=== PATIENT | female | born 1990 | race African-American/Black ===

== ENCOUNTER 2023-08-27 10:10 | Inpatient (IN) | payer OTHER ==
--- NOTE | 2023-08-27 11:11 | ED ---
Abdominal Pain HPI - General Chief Complaint: Abdominal Pain Stated Complaint: abd pain Time Seen by Provider: 08/27/23 11:09 Source: patient, RN notes reviewed Mode of arrival: ambulatory Limitations: no limitations - History of Present Illness Initial Comments: 33-year-old female presenting to the ER with chief complaint of abdominal pain. Patient currently is residing at [facility] for alcohol rehab. She states her last drink was on 08-21-2023. Patient reports she would drink 2 to 3 pints per day. Does have a history of seizures and tremors. Last seizure about 1 year ago. Patient reports about 1 month ago she was diagnosed with pancreatitis and hospitalized at [facility] in [place]. She was discharged on 08/04/23. She states that symptoms have been intermittent and within the past 24 to 48 hours she started to experience extreme abdominal pain especially right upper quadrant and left upper quadrant. She also reports diarrhea and nausea. Denies vomiting or fevers. She has been using a lidocaine patch without relief. Denies any urinary complaints, chest pain, shortness of breath, cough, congestion or peripheral edema. - Related Data Home Medications Medication Instructions Recorded Confirmed Albuterol Sulfate [Albuterol 1 - 2 puff PO Q4-6H PRN 08/27/23 08/27/23 Sulfate Hfa] Celecoxib [CeleBREX] 100 mg PO DAILY 08/27/23 08/27/23 Escitalopram [Lexapro] 10 mg PO DAILY 08/27/23 08/27/23 Folic Acid 1 mg PO DAILY 08/27/23 08/27/23 Mirtazapine 7.5 mg PO HS 08/27/23 08/27/23 Pantoprazole [Protonix] 40 mg PO DAILY 08/27/23 08/27/23 Allergies Allergy/AdvReac Type Severity Reaction Status Date / Time No Known Allergies Allergy Verified 08/27/23 11:18 Review of Systems ROS Statement: Those systems with pertinent positive or pertinent negative responses have been documented in the HPI. ROS Other: All systems not noted in ROS Statement are negative. Past Medical History Additional Past Medical History / Comment(s): pancreatitis, Hep C History of Any Multi-Drug Resistant Organisms: None Reported Past Surgical History: No Surgical Hx Reported, Appendectomy Past Psychological History: Anxiety, Bipolar, Depression, PTSD Smoking Status: Current every day smoker Past Alcohol Use History: None Reported Past Drug Use History: Marijuana General Exam Limitations: no limitations General appearance: alert, in no apparent distress Respiratory exam: Present: normal lung sounds bilaterally. Absent: respiratory distress, wheezes, rales, rhonchi, stridor Cardiovascular Exam: Present: regular rate, normal rhythm, normal heart sounds. Absent: systolic murmur, diastolic murmur, rubs, gallop, clicks GI/Abdominal exam: Present: soft, tenderness (Upper quadrants), normal bowel sounds Neurological exam: Present: alert, oriented X3, CN II-XII intact Skin exam: Present: warm, dry, intact, normal color. Absent: rash Course Vital Signs 08/27/23 08/27/23 10:32 15:13 Temperature 97.7 F Pulse Rate 65 52 L Respiratory 16 16 Rate Blood Pressure 119/82 111/73 O2 Sat by Pulse 99 99 Oximetry - Reevaluation(s) Reevaluation #1: 08/27/23 15:01 Case discussed with irineo Lee, who accepts medical admission. Medical Decision Making - Medical Decision Making Was pt. sent in by a medical professional or institution (, PA, [employer], urgent care, hospital, or assisted...) When possible be specific @ -Patient sent by [facility] for abdominal pain. Did you speak to anyone other than the patient for history (EMS, parent, family, police, friend...)? What history was obtained from this source @ -No Did you review nursing and triage notes (agree or disagree)? Why? @ -I reviewed and agree with nursing and triage notes Were old charts reviewed (outside hosp., previous admission, EMS record, old EKG, old radiological studies, urgent care reports/EKG's, assisted records)? Report findings @ -No old charts were reviewed Differential Diagnosis (chest pain, altered mental status, abdominal pain women, abdominal pain men, vaginal bleeding, weakness, fever, dyspnea, syncope, headache, dizziness, GI bleed, back pain, seizure, CVA, palpatations, mental health, musculoskeletal)? @ -Differential Abdominal Pain Women:Appendicitis, Cholecystitis, diverticulosis, ischemic bowel, pancreatitis, hepatitis, UTI, gastroenteritis, AAA, incarcerated hernia, bowel obstruction, constipation, inflammatory bowel, hepatitis, peptic ulcer disease, splenic infarction, perforated viscus, vulvitis, ovarian torsion, PID, kidney stone, placenta abruption, this is not meant to be an all-inclusive list EKG interpreted by me (3pts min.). @ -None X-rays interpreted by me (1pt min.). @ -None done CT interpreted by me (1pt min.). @ -CT abdomen pelvis significant for retroperitoneal fibrosis or soft tissue mass. U/S interpreted by me (1pt. min.). @ -None done What testing was considered but not performed or refused? (CT, X-rays, U/S, la bs)? Why? @ -None What meds were considered but not given or refused? Why? @ -None Did you discuss the management of the patient with other professionals (professionals i.e. , PA, [employer], lab, RT, psych nurse, social security benefits interviewer, summer internship, teacher, escrow officer, case advocate)? Give summary @ -Yes, case discussed with Dr. Payne accepts medical admission. Was smoking cessation discussed for >3mins.? @ -No Was critical care preformed (if so, how long)? @ -No Were there social determinants of health that impacted care today? How? (Homelessness, low income, unemployed, alcoholism, drug addiction, transportation, low edu. Level, literacy, decrease access to med. care, half-way, rehab)? @ -Patient currently residing at [facility] for alcohol abuse. Was there de-escalation of care discussed even if they declined (Discuss DNR or withdrawal of care, Hospice)? DNR status @ -No What co-morbidities impacted this encounter? (DM, HTN, Smoking, COPD, CAD, Cancer, CVA, ARF, Chemo, Hep., AIDS, mental health diagnosis, sleep apnea, morbid obesity)? @ -Alcohol abuse Was patient admitted / discharged? Hospital course, mention meds given and route, prescriptions, significant lab abnormalities, going to OR and other pertinent info. @ -Admitted. 33-year-old female presenting to the ER with chief complaint of abdominal pain. History and physical exam completed. Vitals stable. Patient in no signs acute distress and nontoxic-appearing. RUQ/LUQ abdomainl tenderness with normal bowel sounds on exam. Laboratory studies obtained significant for a white blood cell count 12.1 with left shift. Elevated lipase at 1708 and amylase 754. Urine without signs of infection. CT abdomen pelvis significant for an incidental finding of retroperitoneal fibrosis or soft tissue mass. Symptomatic treatment in ER. Admission considered for pancreatitis and IV fluids. Case discussed with Irineo Lee, who accepts medical admission. Patient agreeable for admission. Case discussed with ED attending, Dr. Pierre. Undiagnosed new problem with uncertain prognosis? @ -No Drug Therapy requiring intensive monitoring for toxicity (Heparin, Nitro, Insulin, Cardizem)? @ -No Were any procedures done? @ -No Diagnosis/symptom? @ -Pancreatitis Acute, or Chronic, or Acute on Chronic? @ -Acute Uncomplicated (without systemic symptoms) or Complicated (systemic symptoms)? @ -Complicated Side effects of treatment? @ -No Exacerbation, Progression, or Severe Exacerbation? @ -No Poses a threat to life or bodily function? How? (Chest pain, [place], [place], pneumonia, PE, COPD, DKA, ARF, appy, cholecystitis, CVA, Diverticulitis, Homicidal, Suicidal, threat to staff... and all critical care pts) @ -Possibly - Lab Data Result diagrams: 08/27/23 11:11 08/27/23 11:11 Lab Results 08/27/23 08/27/23 08/27/23 Range/Units 11:11 11:11 11:11 WBC 12.1 H (3.8-10.6) k/uL RBC 3.93 (3.80-5.40) m/uL Hgb 11.6 (11.4-16.0) gm/dL Hct 37.3 (34.0-46.0) % MCV 94.9 (80.0-100.0) fL MCH 29.5 (25.0-35.0) pg MCHC 31.1 (31.0-37.0) g/dL RDW 13.6 (11.5-15.5) % Plt Count 410 (150-450) k/uL MPV 7.6 Neutrophils % 67 % Lymphocytes % 13 % Monocytes % 7 % Eosinophils % 11 % Basophils % 1 % Neutrophils # 8.0 H (1.3-7.7) k/uL Lymphocytes # 1.5 (1.0-4.8) k/uL Monocytes # 0.8 (0-1.0) k/uL Eosinophils # 1.4 H (0-0.7) k/uL Basophils # 0.1 (0-0.2) k/uL Hypochromasia Slight Sodium 137 (137-145) mmol/L Potassium 4.2 (3.5-5.1) mmol/L Chloride 107 (98-107) mmol/L Carbon Dioxide 26 (22-30) mmol/L Anion Gap 4 mmol/L BUN 7 (7-17) mg/dL Creatinine 0.48 L (0.52-1.04) mg/dL Est GFR (CKD-EPI)AfAm >90 (>60 ml/min/1.73 sqM) Est GFR (CKD-EPI)NonAf >90 (>60 ml/min/1.73 sqM) Glucose 86 (74-99) mg/dL Plasma Lactic Acid Ajay 1.3 (0.7-2.0) mmol/L Calcium 8.9 (8.4-10.2) mg/dL Total Bilirubin 0.8 (0.2-1.3) mg/dL AST 25 (14-36) U/L ALT 16 (4-34) U/L Alkaline Phosphatase 82 (38-126) U/L Total Protein 6.6 (6.3-8.2) g/dL Albumin 3.4 L (3.5-5.0) g/dL Amylase 754 H* (30-110) U/L Lipase 1708 H (23-300) U/L Urine Color Urine Appearance (Clear) Urine pH (5.0-8.0) Ur Specific [place] (1.001-1.035) Urine Protein (Negative) Urine Glucose (UA) (Negative) Urine Ketones (Negative) Urine Blood (Negative) Urine Nitrite (Negative) Urine Bilirubin (Negative) Urine Urobilinogen (<2.0) mg/dL Ur Leukocyte Esterase (Negative) Urine RBC (0-5) /hpf Urine WBC (0-5) /hpf Ur Squamous Epith Cells (0-4) /hpf Urine Mucus (None) /hpf Urine HCG, Qual (Not Detectd) 08/27/23 08/27/23 Range/Units 12:48 12:48 WBC (3.8-10.6) k/uL RBC (3.80-5.40) m/uL Hgb (11.4-16.0) gm/dL Hct (34.0-46.0) % MCV (80.0-100.0) fL MCH (25.0-35.0) pg MCHC (31.0-37.0) g/dL RDW (11.5-15.5) % Plt Count (150-450) k/uL MPV Neutrophils % % Lymphocytes % % Monocytes % % Eosinophils % % Basophils % % Neutrophils # (1.3-7.7) k/uL Lymphocytes # (1.0-4.8) k/uL Monocytes # (0-1.0) k/uL Eosinophils # (0-0.7) k/uL Basophils # (0-0.2) k/uL Hypochromasia Sodium (137-145) mmol/L Potassium (3.5-5.1) mmol/L Chloride (98-107) mmol/L Carbon Dioxide (22-30) mmol/L Anion Gap mmol/L BUN (7-17) mg/dL Creatinine (0.52-1.04) mg/dL Est GFR (CKD-EPI)AfAm (>60 ml/min/1.73 sqM) Est GFR (CKD-EPI)NonAf (>60 ml/min/1.73 sqM) Glucose (74-99) mg/dL Plasma Lactic Acid Ajay (0.7-2.0) mmol/L Calcium (8.4-10.2) mg/dL Total Bilirubin (0.2-1.3) mg/dL AST (14-36) U/L ALT (4-34) U/L Alkaline Phosphatase (38-126) U/L Total Protein (6.3-8.2) g/dL Albumin (3.5-5.0) g/dL Amylase (30-110) U/L Lipase (23-300) U/L Urine Color Yellow Urine Appearance Cloudy H (Clear) Urine pH 6.0 (5.0-8.0) Ur Specific [place] 1.019 (1.001-1.035) Urine Protein Trace H (Negative) Urine Glucose (UA) Negative (Negative) Urine Ketones Negative (Negative) Urine Blood Small H (Negative) Urine Nitrite Negative (Negative) Urine Bilirubin Negative (Negative) Urine Urobilinogen <2.0 (<2.0) mg/dL Ur Leukocyte Esterase Negative (Negative) Urine RBC <1 (0-5) /hpf Urine WBC 2 (0-5) /hpf Ur Squamous Epith Cells 9 H (0-4) /hpf Urine Mucus Moderate H (None) /hpf Urine HCG, Qual Not Detected (Not Detectd) - Radiology Data Radiology results: report reviewed, image reviewed Disposition Clinical Impression: Pancreatitis Disposition: ADMITTED IP TO THIS HOSP Condition: Fair Referrals: None,Stated [Primary Care Provider] - 1-2 days Time of Disposition: 15:00
[2023-08-27] MEDS: SODIUM CHLORIDE 0.9% 1,000 ML IV STA (11:16)
[2023-08-27] MEDS: ONDANSETRON 4 MG/2 ML VIAL IVP STA (11:16)
[2023-08-27] MEDS: KETOROLAC 15 MG/ML 1 ML VIAL IVP STA (11:17)
[2023-08-27 11:31] LABS: Basophils # (A) 0.1 k/uL (0-0.2); Basophils % (A) 1 %; Eosinophils # (A) 1.4 k/uL (0-0.7); Eosinophils % (A) 11 %; HCT 37.3 % (34.0-46.0); HGB 11.6 gm/dL (11.4-16.0); Hypochromasia Slight; Lymphocytes # (A) 1.5 k/uL (1.0-4.8); Lymphocytes % (A) 13 %; MCH 29.5 pg (25.0-35.0); MCHC 31.1 g/dL (31.0-37.0); MCV 94.9 fL (80.0-100.0); Mean Platelet Volume 7.6; Monocytes # (A) 0.8 k/uL (0-1.0); Monocytes % (A) 7 %; Neutrophils % (A) 67 %; Platelet Count 410 k/uL (150-450); RBC 3.93 m/uL (3.80-5.40); RDW 13.6 % (11.5-15.5); WBC 12.1 k/uL (3.8-10.6)
[2023-08-27 11:56] LABS: ALT 16 U/L (4-34); AST 25 U/L (14-36); African American GFR (CKD) >90 (>60 ml/min/1.73 sqM); Albumin 3.4 g/dL (3.5-5.0); Alkaline Phosphatase 82 U/L (38-126); Anion Gap 4 mmol/L; Blood Urea Nitrogen 7 mg/dL (7-17); Calcium 8.9 mg/dL (8.4-10.2); Carbon Dioxide 26 mmol/L (22-30); Chloride 107 mmol/L (98-107); Glucose 86 mg/dL (74-99); Lipase 1708 U/L (23-300); Non-African American GFR(CKD) >90 (>60 ml/min/1.73 sqM); Potassium 4.2 mmol/L (3.5-5.1); Sodium 137 mmol/L (137-145); Total Bilirubin 0.8 mg/dL (0.2-1.3); Total Protein 6.6 g/dL (6.3-8.2)
[2023-08-27 12:07] LABS: Amylase 754 U/L (30-110)
[2023-08-27 13:25] LABS: Appearance,Urine Cloudy (Clear); Bilirubin,Urine Negative (Negative); Blood,Urine Small (Negative); Color,Urine Yellow; Glucose,Urine (UA) Negative (Negative); Ketones,Urine Negative (Negative); Leukocyte Esterase,Urine Negative (Negative); Mucus,Urine Moderate /hpf; Nitrite,Urine Negative (Negative); Protein,Urine Trace (Negative); RBC,Urine <1 /hpf (0-5); Specific Gravity,Urine 1.019 (1.001-1.035); Squamous Epithelial Cell,Urine 9 /hpf (0-4); Urobilinogen,Urine <2.0 mg/dL (<2.0); WBC,Urine 2 /hpf (0-5)
--- NOTE | 2023-08-27 14:40 | CT ---
EXAMINATION TYPE: CT abdomen pelvis w con CT DLP: 430.3 mGycm, Automated exposure control for dose reduction was used. DATE OF EXAM: 08/27/2023 1:55 PM COMPARISON: None. CLINICAL INDICATION:Female, 33 years old with history of abd pain; Abdominal pain TECHNIQUE: Axial CT abdomen pelvis w con;Sagittal and coronal reformats were created on a separate w orkstation. Contrast used:100 ml mL of Isovue 300 with IV Contrast, (none if empty) Oral contrast used: without Oral Contrast (none if empty) FINDINGS: LOWER CHEST: Unremarkable ABDOMEN LIVER: Unremarkable GALLBLADDER AND BILE DUCTS: Unremarkable. PANCREAS: Unremarkable. SPLEEN: Unremarkable. ADRENAL GLANDS: Unremarkable. KIDNEYS AND URETERS: No evidence of hydronephrosis or renal calculus. The ureters are unremarkable. PELVIS BLADDER: Unremarkable REPRODUCTIVE: Unremarkable. ABDOMEN & PELVIS STOMACH AND BOWEL: Stomach and duodenum are unremarkable PICC line No evidence of bowel obstruction. PERITONEUM/RETROPERITONEUM: In the hi hepatis and chest below the takeoff of the SMA there is soft tissue density mass partially encasing the inferior vena cava and the right renal artery pain left r enal vein is involved. Mass extends to the bifurcation of the aorta. Although this structure a perito lynette mass does not appear to extend to the uterus, the uterus has a similar density and appearance of the mass. VASCULATURE: No evidence of aortic aneurysm. MUSCULOSKELETAL: No acute osseous abnormalities LYMPH NODES: No gross evidence for lymphadenopathy. SOFT TISSUE/ABDOMINAL WALL: Unremarkable IMPRESSION: 1. Retroperitoneal fibrosis or soft tissue mass not otherwise specified in the retroperitoneum. RPF is usually idiopathic. However, it can be secondary to other causes, such as malignancy, infecti on, retroperitoneal injury, or drugs. Lymphoma can sometimes do this.
[2023-08-27] MEDS ORDERED: NALOXONE 0.4 MG/ML 1 ML VIAL IV PRN (14:58)
[2023-08-27] MEDS: SODIUM CHLORIDE 0.9% 1,000 ML IV SCH (15:11)
[2023-08-27] MEDS: KETOROLAC 15 MG/ML 1 ML VIAL IVP PRN (15:11)
[2023-08-27] MEDS: THIAMINE 100 MG TAB PO SCH (16:06)
[2023-08-27] MEDS: LACTATED RINGERS 1,000 ML IV SCH (16:07)
--- NOTE | 2023-08-27 17:27 | P.HPIM ---
History of Present Illness H&P Date: 08/27/23 Patient is a 33-year-old female with history of alcohol abuse and previous history of pancreatitis presenting from [place] with abdominal pain. She claims that she has been drinking 2 to 3 pints of vodka per day, last drink was 6 days ago. Recently she was then different part of [place], was diagnosed with pancreatitis. She was later discharged on pain medication however, her wilmer n has now resolved and since worsened. She denies any nausea, vomiting, chest pain, palpitations, lightheadedness, urinary or bowel complaints. She did have 1 loose bowel movement today, otherwise her bowel movements have been normal. She smokes half a pack a day, and occasionally smokes marijuana. In the ED, temperature was 97.7, pulse 65, respiratory rate 16, blood pressure 119/82, saturating at 99% on room air. Abdomen pelvis CT shows retroperitoneal fibrosis or soft tissue mass not otherwise specified in the retroperitoneum, likely idiopathic, however can be secondary to other causes such as malignancy, infection, retroperitoneal injury, or drugs, lymphoma can also sometimes be seen . WBC 12.1, creatinine 0.48, amylase 754, lipase 1700. Urinalysis negative for nitrites and leukocyte esterase. Beta-hCG negative. Patient started on IV fluids. Being admitted for acute pancreatitis. Pertinent positives and negatives as discussed in HPI, a complete review of systems was performed and all other systems are negative. Patient seen and examined at bedside. Vital signs reviewed General: nontoxic, no distress, appears at stated age Derm: warm, dry Head: atraumatic, normocephalic, symmetric Eyes: EOMI, no lid lag, anicteric sclera, pupils equal round reactive to light ENT: Nose and ears atraumatic Neck: No thyromegaly, supple Mouth: no lip lesion, mucus membranes moist Cardiovascular: S1S2 reg, no murmur, no edema Lungs: clear to auscultation bilateral, no rhonchi, no rales, no wheeze, no accessory muscle use Abdominal: soft, tender to palpation in epigastric, and right flank. No guarding, no appreciable organomegaly Ext: no gross muscle atrophy, muscle strength muscle strength 5 out of 5 in all 4 extremities, no contractures Neuro: CN II-XII grossly intact Psych: Alert, oriented, appropriate affect Assessment/Plan: Active: Acute on chronic alcoholic pancreatitis Leukocytosis, likely reactive Alcohol dependence -Started on lactated Ringer 150 cc an hour -Pain control with IV morphine as needed, monitor for sedation, also on IV Toradol as needed, monitor renal function -Zofran as needed IV for nausea vomiting -Continue home pantoprazole 40 mg daily -CT abdomen pelvis reporting retroperitoneal fibrosis or 2 soft tissue mass, may need further evaluation in the future with dedicated MRI -Patient has had previous episodes of pancreatitis -Monitor for withdrawal, started on thiamine oral 100 mg daily -Last drink was 08/21/2023, should be out of withdrawal period -Repeat CBC and BMP tomorrow Nicotine dependence -Counseled regarding smoking cessation Chronic: GERD Depression The patient is admitted with an anticipated less than 2 midnight stay as observation status for evaluation of acute on chronic pancreatitis. Surrogate decision-maker: Sibling CODE STATUS: Full code DVT prophylaxis: Lovenox Anticipated discharge date: Pending clinical course Anticipated discharge place: Pending clinical course A total of 55 minutes was spent on the care of this complex patient more than 50% of the time was spent in counseling and care coordination. Past Medical History Additional Past Medical History / Comment(s): pancreatitis, Hep C History of Any Multi-Drug Resistant Organisms: None Reported Past Surgical History: No Surgical Hx Reported, Appendectomy Past Psychological History: Anxiety, Bipolar, Depression, PTSD Smoking Status: Current every day smoker Past Alcohol Use History: None Reported Past Drug Use History: Marijuana Medications and Allergies Home Medications Medication Instructions Recorded Confirmed Type Albuterol Sulfate [Albuterol 1 - 2 puff PO Q4-6H PRN 08/27/23 08/27/23 History Sulfate Hfa] Celecoxib [CeleBREX] 100 mg PO DAILY 08/27/23 08/27/23 History Escitalopram [Lexapro] 10 mg PO DAILY 08/27/23 08/27/23 History Folic Acid 1 mg PO DAILY 08/27/23 08/27/23 History Mirtazapine 7.5 mg PO HS 08/27/23 08/27/23 History Pantoprazole [Protonix] 40 mg PO DAILY 08/27/23 08/27/23 History Allergies Allergy/AdvReac Type Severity Reaction Status Date / Time No Known Allergies Allergy Verified 08/27/23 11:18 Physical Exam Vitals: Vital Signs Temp Pulse Resp BP Pulse Ox 08/27/23 15:13 52 L 16 111/73 99 08/27/23 10:32 97.7 F 65 16 119/82 99 Intake and Output 08/27/23 08/27/23 08/27/23 06:59 14:59 22:59 Other: Weight 58.06 kg Results CBC & Chem 7: 08/27/23 11:11 08/27/23 11:11 Labs: Abnormal Lab Results - Last 24 Hours (Table) 08/27/23 08/27/23 08/27/23 Range/Units 11:11 11:11 12:48 WBC 12.1 H (3.8-10.6) k/uL Neutrophils # 8.0 H (1.3-7.7) k/uL Eosinophils # 1.4 H (0-0.7) k/uL Creatinine 0.48 L (0.52-1.04) mg/dL Albumin 3.4 L (3.5-5.0) g/dL Amylase 754 H* (30-110) U/L Lipase 1708 H (23-300) U/L Urine Appearance Cloudy H (Clear) Urine Protein Trace H (Negative) Urine Blood Small H (Negative) Ur Squamous Epith Cells 9 H (0-4) /hpf Urine Mucus Moderate H (None) /hpf
[2023-08-27] MEDS: MORPHINE SULFATE 2 MG/ML SYRINGE IVP PRN (18:25)
[2023-08-27] MEDS: MIRTAZAPINE 15 MG TAB PO SCH (20:45)
[2023-08-28 03:56] LABS: ALT 14 U/L (4-34); AST 18 U/L (14-36); African American GFR (CKD) >90 (>60 ml/min/1.73 sqM); Albumin 2.6 g/dL (3.5-5.0); Alkaline Phosphatase 62 U/L (38-126); Anion Gap 5 mmol/L; Blood Urea Nitrogen 4 mg/dL (7-17); Calcium 8.2 mg/dL (8.4-10.2); Carbon Dioxide 20 mmol/L (22-30); Chloride 113 mmol/L (98-107); Glucose 128 mg/dL (74-99); Magnesium 1.9 mg/dL (1.6-2.3); Non-African American GFR(CKD) >90 (>60 ml/min/1.73 sqM); Potassium 3.8 mmol/L (3.5-5.1); Sodium 138 mmol/L (137-145); Total Bilirubin 0.5 mg/dL (0.2-1.3); Total Protein 5.4 g/dL (6.3-8.2)
[2023-08-28 04:31] LABS: HCT 33.5 % (34.0-46.0); HGB 10.4 gm/dL (11.4-16.0); Hypochromasia Moderate; MCH 29.8 pg (25.0-35.0); Mean Platelet Volume 8.4; Platelet Count 347 k/uL (150-450); RBC 3.49 m/uL (3.80-5.40); RDW 13.5 % (11.5-15.5); WBC 8.8 k/uL (3.8-10.6)
[2023-08-28 06:37] LABS: Band Neutrophils % 1 %; Lymphocytes # (M) 2.29 k/uL (1.0-4.8); Monocytes # (M) 0.26 k/uL (0-1.0); Neutrophils % (M) 53 %; Nucleated Red Blood Cells 0 /100 WBC (0-0); Total Cells Counted 100
[2023-08-28 06:43] LABS: Polychromasia Present; Target Cells Present
[2023-08-28 06:44] LABS: Poikilocytosis (M) Present
[2023-08-28] MEDS: PANTOPRAZOLE 40 MG TABLET PO SCH (08:08)
[2023-08-28] MEDS: ENOXAPARIN 40 MG/0.4 ML SYRINGE SQ SCH (08:08)
[2023-08-28] MEDS ORDERED: ACETAMINOPHEN TAB 325 MG TAB PO PRN (08:14)
[2023-08-28] MEDS: MORPHINE SULFATE 4 MG/ML SYRINGE IVP PRN (08:27)
[2023-08-28] MEDS: ESCITALOPRAM 10 MG TAB PO SCH (08:28)
[2023-08-28] MEDS: ONDANSETRON 4 MG/2 ML VIAL IVP PRN (10:04)
[2023-08-28 11:01] LABS: Glucose,Whole Blood 98 mg/dL (70-110)
[2023-08-28] MEDS: METOCLOPRAMIDE 5 MG/ML 2 ML VIAL IVP STA ×2 (11:34→21:49)
[2023-08-28] MEDS: KETOROLAC 15 MG/ML 1 ML VIAL IVP STA (11:35)
--- NOTE | 2023-08-28 13:57 | P.PN ---
Subjective Progress Note Date: 08/28/23 Hospital Course: 33-year-old female with history of alcohol dependence, previous history of mcdaniel creatitis, bipolar disorder, generalized anxiety disorder, major depressive disorder, PTSD, nicotine dependence and cannabis use disorder presenting from [place] with abdominal pain. In the ED, temperature was 97.7, pulse 65, respiratory rate 16, blood pressure 119/82, saturating at 99% on room air. Abdomen pelvis CT shows retroperitoneal fibrosis or soft tissue mass not otherwise specified in the retroperitoneum, likely idiopathic, however can be secondary to other causes such as malignancy, infection, retroperitoneal injury, or drugs, lymphoma can also sometimes be seen. WBC 12.1, creatinine 0.48, amylase 754, lipase 1700. Urinalysis negative for nitrites and leukocyte esterase. Beta-hCG negative. Patient started on IV fluids. Being admitted for acute pancreatitis. On the morning of 08/28/2023 patient had an episode of unresponsiveness. No seizure-like activity noted. Patient became quickly responsive and screaming in pain and try to induce vomiting. There was no postictal period noted. Neurology was notified. Attempted to get a CT head and stat EEG, patient refusing. Symptoms consistent with pseudoseizure. Psychiatry also consulted. Subjective: Patient seen and examined at bedside. This morning, patient had an episode of unresponsiveness. No seizure-like activity noted. Patient became quickly responsive and screaming in pain and try to induce vomiting. There was no postictal period noted. Neurology was notified. Attempted to get a CT head and stat EEG, patient refusing. Symptoms consistent with pseudoseizure. Psychiatry also consulted. Pertinent positives and negatives as discussed above, a complete review of systems was performed and all other systems are negative. Vitals Signs Reviewed. General: Nontoxic, no distress, appears at stated age Derm: Warm, dry Head: Atraumatic, normocephalic, symmetric Eyes: EOMI, no lid lag, anicteric sclera Mouth: No lip lesion, mucus membranes moist Cardiovascular: S1S2 reg, no murmur Lungs: CTA bilateral, no rhonchi, no rales, no accessory muscle use Abdominal: Soft, diffusely tender to palpation, no guarding, no appreciable organomegaly Ext: No gross muscle atrophy, no edema, no contractures Neuro: CN II-XI grossly intact, no focal neuro deficits Psych: Alert, oriented, no uncooperative Data Reviewed Today: Pertinent Labs: WBC 8.8, hemoglobin 10.4, potassium 3.8, creatinine 0.38, mag nesium 1.9, blood sugars range between 86-1 28. Imaging: No new imaging Assessment and Plan: Acute on chronic alcoholic pancreatitis Retroperitoneal fibrosis versus mass Leukocytosis, likely reactive, resolved Alcohol dependence -Continue lactated Ringer 150 cc an hour -Pain control with IV morphine 4 mg IV every 6 hours as needed, monitor for sedation, also on IV Toradol 50 mg IV every 6 hours as needed, monitor renal function -Also started on oral Tylenol as needed, oral [place] as needed -Zofran as needed IV for nausea vomiting -Continue home pantoprazole 40 mg daily -MRI ordered -Monitor for withdrawal, continue thiamine oral 100 mg daily -Last drink was 08/21/2023, should be out of withdrawal period Nicotine dependence -Counseled regarding smoking cessation during this admission Pseudoseizures? History of bipolar disorder History of depression -Discussed management with neurology, recommended EEG which patient is refusing, CT head pending -Psychiatry consulted DVT ppx: Lovenox Code status: Full code Anticipated discharge place: Pending clinical course Anticipated discharge time: Pending clinical course Objective - Vital Signs Vital signs: Vital Signs Temp 97.8 F 08/28/23 13:27 Pulse 68 08/28/23 13:27 Resp 20 08/28/23 09:57 BP 115/68 08/28/23 13:27 Pulse Ox 100 08/28/23 13:27 FiO2 Intake & Output 08/27/23 08/28/23 08/28/23 18:59 06:59 18:59 Weight 58.06 kg Other: # Voids 1 # Emeses 2 - Labs CBC & Chem 7: 08/28/23 03:23 08/28/23 03:23 Labs: Abnormal Lab Results - Last 24 Hours (Table) 08/28/23 08/28/23 Range/Units 03:23 03:23 RBC 3.49 L (3.80-5.40) m/uL Hgb 10.4 L (11.4-16.0) gm/dL Hct 33.5 L (34.0-46.0) % Eosinophils # (Manual) 1.50 H (0-0.7) k/uL Chloride 113 H (98-107) mmol/L Carbon Dioxide 20 L (22-30) mmol/L BUN 4 L (7-17) mg/dL Creatinine 0.38 L (0.52-1.04) mg/dL Glucose 128 H (74-99) mg/dL Calcium 8.2 L (8.4-10.2) mg/dL Total Protein 5.4 L (6.3-8.2) g/dL Albumin 2.6 L (3.5-5.0) g/dL
--- NOTE | 2023-08-28 14:14 | P.CNNES ---
History of Present Illness Consult date: 08/28/23 Requesting physician: Galdino Bruno Reason for Consult: pseudoseizure History of Present Illness: This is a 33-year-old woman with history of alcohol dependence, pancreatitis, bipolar, generalized anxiety disorder, major depression disorder, PTSD, nicotine dependence, cannabinoid use who presented from [place] because of abdominal pain. She was obtained from primary team as well as the nurse. Neurology is consulted for unresponsiveness and it was felt she had pseudoseizure by the primary team. Per the primary team she had episode of unresponsiveness but no seizure-like activity noted and she was responsive quickly and was screaming in pain and trying to induce vomiting with no postictal state. Upon seeing patient she was screaming stating "Dear Father help me" and was attempting to vomit. He is unable to provide history for me. Upon seizure there is no visible seizure- like activity. Stat EEG was ordered by the primary team and the patient was uncooperative and refused the EEG. Some of the workup during this hospital visit consisted of: Amylase level is 754. Lipase is 1708. AST of 25 and ALT of 16. Plasma lactic acid vein is 1.3 Calcium is 8.9 magnesium is 1.9. Sodium is 138. Review of Systems Limited in the positive and negative as per HPI. Past Medical History Additional Past Medical History / Comment(s): pancreatitis, Hep C History of Any Multi-Drug Resistant Organisms: None Reported Past Surgical History: No Surgical Hx Reported, Appendectomy Past Psychological History: Anxiety, Bipolar, Depression, PTSD Smoking Status: Current every day smoker Past Alcohol Use History: None Reported Past Drug Use History: Marijuana Medications and Allergies Home Medications Medication Instructions Recorded Confirmed Type Albuterol Sulfate [Albuterol 1 - 2 puff PO Q4-6H PRN 08/27/23 08/27/23 History Sulfate Hfa] Celecoxib [CeleBREX] 100 mg PO DAILY 08/27/23 08/27/23 History Escitalopram [Lexapro] 10 mg PO DAILY 08/27/23 08/27/23 History Folic Acid 1 mg PO DAILY 08/27/23 08/27/23 History Mirtazapine 7.5 mg PO HS 08/27/23 08/27/23 History Pantoprazole [Protonix] 40 mg PO DAILY 08/27/23 08/27/23 History Allergies Allergy/AdvReac Type Severity Reaction Status Date / Time No Known Allergies Allergy Verified 08/27/23 11:18 Physical Examination - Vital Signs Vital Signs: Vital Signs Temp Pulse Pulse Pulse Resp BP BP 08/28/23 13:27 97.8 F 68 115/68 08/28/23 09:57 97.8 F 79 20 111/64 08/28/23 08:00 62 18 08/28/23 01:34 97.7 F 62 17 111/65 08/27/23 20:14 97.7 F 61 17 127/83 08/27/23 17:53 98.1 F 71 18 109/73 08/27/23 17:31 97.5 F L 60 16 115/76 08/27/23 15:13 52 L 16 111/73 Pulse Ox 08/28/23 13:27 100 08/28/23 09:57 100 08/28/23 08:00 08/28/23 01:34 100 08/27/23 20:14 100 08/27/23 17:53 99 08/27/23 17:31 100 08/27/23 15:13 99 Intake and Output 08/27/23 08/28/23 08/28/23 22:59 06:59 14:59 Other: # Voids 1 # Emeses 2 Weight 58.06 kg General: Sitting on bed and screaming she is in pain and attempting to vomit. Neuro: Very limited No facial weakness. Patient is moving upper extremities spontaneously. I came back another time to assess the patient again there is a limitation she is screaming in pain and placing her hand on the right flank. Results - Laboratory Findings CBC and BMP: 08/28/23 03:23 08/28/23 03:23 Abnormal Lab Findings: Abnormal Labs 08/27/23 08/27/23 08/27/23 11:11 11:11 12:48 WBC 12.1 H RBC Hgb Hct Neutrophils # 8.0 H Eosinophils # 1.4 H Eosinophils # (Manual) Chloride Carbon Dioxide BUN Creatinine 0.48 L Glucose Calcium Total Protein Albumin 3.4 L Amylase 754 H* Lipase 1708 H Urine Appearance Cloudy H Urine Protein Trace H Urine Blood Small H Ur Squamous Epith Cells 9 H Urine Mucus Moderate H 08/28/23 08/28/23 03:23 03:23 WBC RBC 3.49 L Hgb 10.4 L Hct 33.5 L Neutrophils # Eosinophils # Eosinophils # (Manual) 1.50 H Chloride 113 H Carbon Dioxide 20 L BUN 4 L Creatinine 0.38 L Glucose 128 H Calcium 8.2 L Total Protein 5.4 L Albumin 2.6 L Amylase Lipase Urine Appearance Urine Protein Urine Blood Ur Squamous Epith Cells Urine Mucus Assessment and Plan Assessment: This is a 33-year-old young woman with history of pancreatitis, alcohol dependence and significant psychiatric issue who presents from [facility] of abdominal pain. Neurology is consulted for pseudoseizure. It seems that the patient was unresponsive today but had no seizure-like activity noted and she was responsive quickly and screaming in pain and inducing vomiting. Stat EEG was ordered but patient was uncooperative and refused to EEG. Episode of unresponsiveness and note seems nonepileptic in nature in which the patient did not have any seizure-like activity and was responsive. Patient refused the EEG. Elevated amylase and lipase with history of pancreatitis Alcohol dependence Bipolar Generalized anxiety disorder Major depressive disorder PTSD Nicotine dependence Cannabinoid Plan: Patient refused EEG. Will attempt again. CT of the brain without is ordered and is pending I will hold off placing the patient on any antiepileptic drugs since her episode seems nonepileptic. Patient is currently on thiamine 100 mg daily. But if she is having vomiting episodes then recommend switching her to IV. Psychiatry team is consulted Will defer the rest of the medical management to primary and other specialists Discussed with the patient's primary team and nurse. Thank you for the consultation. Time with Patient: Greater than 30
--- NOTE | 2023-08-28 14:45 | CT ---
EXAMINATION TYPE: CT brain wo con CT DLP: 1177 mGycm, Automated exposure control for dose reduction was used. DATE OF EXAM: 08/28/2023 2:37 PM COMPARISON: None. CLINICAL INDICATION:Female, 33 years old with history of AMS, ams TECHNIQUE: Brain: Axial CT images of the brain were obtained with coronal and sagittal reformats created and rev iewed. Contrast used: None. Oral contrast used: None. FINDINGS: Brain: Extra-axial spaces: No abnormal extra-axial fluid collections. Ventricular system: Within normal limits Cerebral parenchyma: No acute intraparenchymal hemorrhage or mass effect. The anaya-white junction is well differentiated. Cerebellum: Unremarkable. Mass effect: No evidence of midline shift. Intracranial vasculature: unremarkable Soft tissues: Normal. Calvarium/osseous structures: No depressed skull fracture. Paranasal sinuses and mastoid air cells: Mild scattered paranasal sinus disease. Visualized orbits: Orbital contents are intact. IMPRESSION: No acute intracranial process.
[2023-08-28] MEDS: HYDROcodone/APAP 5-325MG 1 EACH TAB PO PRN (16:47)
[2023-08-29 10:24] LABS: HCT 32.2 % (37.2-46.3); HGB 10.3 g/dL (12.0-15.0); MCH 28.7 pg (27.0-32.0); MCV 89.7 FL (80.0-97.0); Mean Platelet Volume 9.5 FL (9.5-12.2); NRBC Per 100 WBC 0 X 10*3/uL (0.00-0.01); Platelet Count 418 X 10*3/uL (140-440); RBC 3.59 X 10*6/uL (4.10-5.20); RDW 13.9 % (11.5-14.5); WBC 14.13 X 10*3/uL (4.50-10.00)
[2023-08-29 11:08] LABS: Basophils # (A) 0.04 X 10*3/uL (0.00-0.10); Basophils % (A) 0.3 %; Eosinophils # (A) 0.32 X 10*3/uL (0.04-0.35); Eosinophils % (A) 2.3 %; Lymphocytes # (A) 1.86 X 10*3/uL (0.90-5.00); Lymphocytes % (A) 13.2 %; Monocytes # (A) 2.06 X 10*3/uL (0.20-1.00); Monocytes % (A) 14.6 %; Neutrophils % (A) 69.2 %; RBC Morphology Normal (Normal)
[2023-08-29 11:11] LABS: ALT 11 U/L (8-44); AST 16 U/L (13-35); Albumin 3.4 g/dL (3.8-4.9); Albumin/Globulin Ratio 1.36 Ratio (1.60-3.17); Alkaline Phosphatase 76 U/L (41-126); Blood Urea Nitrogen 5.2 mg/dL (9.0-27.0); Calcium 8.5 mg/dL (8.7-10.3); Carbon Dioxide 25.2 mmol/L (21.6-31.8); Chloride 104 mmol/L (96-109); Globulin 2.5 g/dL (1.6-3.3); Glucose 109 mg/dL (70-110); Magnesium 1.8 mg/dL (1.5-2.4); Potassium 3.9 mmol/L (3.5-5.5); Sodium 140 mmol/L (135-145); Total Bilirubin 0.5 mg/dL (0.3-1.2); Total Protein 5.9 g/dL (6.2-8.2)
--- NOTE | 2023-08-29 15:22 | P.PN ---
Subjective Progress Note Date: 08/29/23 Hospital Course: 33-year-old female with history of alcohol dependence, previous history of mcdaniel creatitis, bipolar disorder, generalized anxiety disorder, major depressive disorder, PTSD, nicotine dependence and cannabis use disorder presenting from [place] with abdominal pain. In the ED, temperature was 97.7, pulse 65, respiratory rate 16, blood pressure 119/82, saturating at 99% on room air. Abdomen pelvis CT shows retroperitoneal fibrosis or soft tissue mass not otherwise specified in the retroperitoneum, likely idiopathic, however can be secondary to other causes such as malignancy, infection, retroperitoneal injury, or drugs, lymphoma can also sometimes be seen. WBC 12.1, creatinine 0.48, amylase 754, lipase 1700. Urinalysis negative for nitrites and leukocyte esterase. Beta-hCG negative. Patient started on IV fluids. Being admitted for acute pancreatitis. On the morning of 08/28/2023 patient had an episode of unresponsiveness. No seizure-like activity noted. Patient became quickly responsive and screaming in pain and try to induce vomiting. There was no postictal period noted. Neurology was notified. Attempted to get a CT head and stat EEG, patient refusing. Symptoms consistent with pseudoseizure. Psychiatry also consulted. CT head did not show any acute process. EEG showed no seizure- like activity. MRI abdomen pelvis pending. Subjective: Patient seen and examined at bedside. No acute events overnight. Patient still complaining of pain and nausea. Unable to tolerate oral intake. MRI pending. Pertinent positives and negatives as discussed above, a complete review of systems was performed and all other systems are negative. Vitals Signs Reviewed. General: Nontoxic, no distress, appears at stated age Derm: Warm, dry Head: Atraumatic, normocephalic, symmetric Eyes: EOMI, no lid lag, anicteric sclera Mouth: No lip lesion, mucus membranes moist Cardiovascular: S1S2 reg, no murmur Lungs: CTA bilateral, no rhonchi, no rales, no accessory muscle use Abdominal: Soft, diffusely tender to palpation, no guarding, no appreciable organomegaly Ext: No gross muscle atrophy, no edema, no contractures Neuro: CN II-XI grossly intact, no focal neuro deficits Psych: Alert, oriented, no uncooperative Data Reviewed Today: Pertinent Labs: WBC 14.13, hemoglobin 10.3, potassium 3.9, creatinine 0.4, magnesium 1.8 Imaging: No new imaging Assessment and Plan: Acute on chronic alcoholic pancreatitis Retroperitoneal fibrosis versus mass Leukocytosis, likely reactive, resolved Alcohol dependence -Continue lactated Ringer 150 cc an hour -Pain control with IV morphine 4 mg IV every 6 hours as needed, monitor for sedation, also on IV Toradol 50 mg IV every 6 hours as needed, monitor renal function -Also started on oral Tylenol as needed, oral [place] as needed -Zofran as needed IV for nausea vomiting -Continue home pantoprazole 40 mg daily -MRI pending -Monitor for withdrawal, continue thiamine oral 100 mg daily -Last drink was 08/21/2023, should be out of withdrawal period Nicotine dependence -Counseled regarding smoking cessation during this admission Pseudoseizures? History of bipolar disorder History of depression -Discussed management with neurology, signed off -Psychiatry consulted -Continue Lexapro 10 mg daily, mirtazapine 7.5 nightly -Patient may have personality disorder as well DVT ppx: Lovenox Code status: Full code Anticipated discharge place: Pending clinical course Anticipated discharge time: Pending clinical course Objective - Vital Signs Vital signs: Vital Signs Temp 98.7 F 08/29/23 12:02 Pulse 55 L 08/29/23 12:02 Resp 16 08/29/23 12:02 BP 133/82 08/29/23 12:02 Pulse Ox 99 08/29/23 12:02 FiO2 Intake & Output 08/28/23 08/29/23 08/29/23 18:59 06:59 18:59 Intake Total 1050 1800 Balance 1050 1800 Intake: Intake, IV Titration 1050 1800 Amount Lactated Ringers 1,000 ml 1050 1800 @ 150 mls/hr IV .Q6H40M [facility] Rx#:[id number] Other: Voiding Method Toilet Toilet Toilet # Voids 1 1 # Emeses 2 - Labs CBC & Chem 7: 08/29/23 06:12 08/29/23 06:12 Labs: Abnormal Lab Results - Last 24 Hours (Table) 08/29/23 08/29/23 Range/Units 06:12 06:12 WBC 14.13 H (4.50-10.00) X 10*3/uL RBC 3.59 L (4.10-5.20) X 10*6/uL Hgb 10.3 L (12.0-15.0) g/dL Hct 32.2 L (37.2-46.3) % Immature Gran # 0.05 H (0.00-0.04) X 10*3/uL Neutrophils # 9.80 H (1.80-7.70) X 10*3/uL Monocytes # 2.06 H (0.20-1.00) X 10*3/uL BUN 5.2 L (9.0-27.0) mg/dL Creatinine 0.4 L (0.6-1.5) mg/dL Calcium 8.5 L (8.7-10.3) mg/dL Total Protein 5.9 L (6.2-8.2) g/dL Albumin 3.4 L (3.8-4.9) g/dL Albumin/Globulin Ratio 1.36 L (1.60-3.17) Ratio
--- NOTE | 2023-08-29 15:56 | P.PN ---
Subjective Progress Note Date: 08/29/23 I am following-up with patient and she has abdominal pain but otherwise doing better. She states she has underlying history of nonepileptic seizures due to stress. She states she had EEG at different hospital and was evaluated by neurologist at [place], [place]. She has been having nonepileptic seizures for past one year. Objective - Vital Signs Vital signs: Vital Signs Temp 98.7 F 08/29/23 12:02 Pulse 55 L 08/29/23 12:02 Resp 16 08/29/23 12:02 BP 133/82 08/29/23 12:02 Pulse Ox 99 08/29/23 12:02 FiO2 Intake & Output 08/28/23 08/29/23 08/29/23 18:59 06:59 18:59 Intake Total 1050 1800 Balance 1050 1800 Intake: Intake, IV Titration 1050 1800 Amount Lactated Ringers 1,000 ml 1050 1800 @ 150 mls/hr IV .Q6H40M [facility] Rx#:[id number] Other: Voiding Method Toilet Toilet Toilet # Voids 1 1 # Emeses 2 - Exam General: Lying in bed and is not in acute distress. Neuro: The patient is awake, alert, oriented to self, place and time. Is following simple commands. No aphasia or neglect. Pupils are round, equal and reactive to light. Visual frye are full to confrontation. EOM intact and no nystagmus. No facial weakness. No dysarthria. Motor: 5/5 throughout. Some of the workup during this hospital visit consisted of: Amylase level is 754. Lipase is 1708. AST of 25 and ALT of 16. Plasma lactic acid vein is 1.3 Calcium is 8.9 magnesium is 1.9. Sodium is 138. CT head is no acute intracranial process. - Labs CBC & Chem 7: 08/29/23 06:12 08/29/23 06:12 Labs: Abnormal Lab Results - Last 24 Hours (Table) 08/29/23 08/29/23 Range/Units 06:12 06:12 WBC 14.13 H (4.50-10.00) X 10*3/uL RBC 3.59 L (4.10-5.20) X 10*6/uL Hgb 10.3 L (12.0-15.0) g/dL Hct 32.2 L (37.2-46.3) % Immature Gran # 0.05 H (0.00-0.04) X 10*3/uL Neutrophils # 9.80 H (1.80-7.70) X 10*3/uL Monocytes # 2.06 H (0.20-1.00) X 10*3/uL BUN 5.2 L (9.0-27.0) mg/dL Creatinine 0.4 L (0.6-1.5) mg/dL Calcium 8.5 L (8.7-10.3) mg/dL Total Protein 5.9 L (6.2-8.2) g/dL Albumin 3.4 L (3.8-4.9) g/dL Albumin/Globulin Ratio 1.36 L (1.60-3.17) Ratio Assessment and Plan Assessment: This is a 33-year-old young woman with history of pancreatitis, alcohol dependence and significant psychiatric issue who presents from [place] because of abdominal pain. Neurology is consulted for pseudoseizure. It seems that the patient was unresponsive today but had no seizure-like activity noted and she was responsive quickly and screaming in pain and inducing vomiting. Stat EEG was ordered but patient was uncooperative and refused to EEG. Episode of unresponsiveness is non-epileptic seizure. Preliminary routine EEG is normal and CT head is normal. Patient has history of nonepilpetic seizures---currently today is doing better. Elevated amylase and lipase with history of pancreatitis History of nonepileptic seizure (stated had EEG and neurological evaluation at outside hospital and was given diagnosis for about one year). Alcohol dependence Bipolar Generalized anxiety disorder Major depressive disorder PTSD Nicotine dependence Cannabinoid Plan: As stated routine EEG preliminary is normal. Patient stated that she used to be on Depakote for mood but she is off of it and unsure reason. I will defer that decision to psychiatry team but since she has alcohol use I would avoid it and I would consider Lamictal but again will defer the final decision to the psychiatry team. Mental has both mood benefit as well as antiepileptic benefit. Continue thiamine. Psychiatry team is consulted Will defer the rest of the medical management to primary and other specialists Recommend the patient to follow-up with neurology team as an outpatient as well as psychiatry/therapist as outpatient within 3-4 weeks. Discussed with the patient and primary team. There is no further neurological workup. Will sign off. Please reconsult if needed. Time with Patient: Less than 30
[2023-08-29] MEDS: METOCLOPRAMIDE 5 MG/ML 2 ML VIAL IVP PRN (17:09)
[2023-08-29] MEDS: HYDROmorphone 0.5 MG/0.5 ML SYRINGE IVP STA (17:10)
--- NOTE | 2023-08-29 18:48 | MR ---
EXAMINATION TYPE: MR abdomen wo/w con DATE OF EXAM: 08/29/2023 2:36 PM CLINICAL INDICATION:Female, 33 years old with history of retroperitonal mass; PHH, Rt side abdomen pa in into pelvis COMPARISON: CT scan abdomen from 08/27/2023. TECHNIQUE: Multiplanar multi-sequence imaging was performed without contrast. Post contrast imaging was performed. Post IV contrast subtraction images were also submitted for review. IV Contrast: 6 cc Gadavist FINDINGS: LOWER CHEST: No gross irregularity. ABDOMEN Liver: No evidence for hepatic steatosis or cirrhosis. Gallbladder and Bile ducts: No evidence for ductal dilation, or biliary stricture or evidence of chol edocholithiasis. The gallbladder is within normal limits. Pancreas: Extensive Fat stranding changes are seen throughout the abdomen with abnormal high T2 edema within the posterior aspect of the pancreatic head which may enhance less well compared to the remai nder of the parenchyma. This is best appreciated on CT imaging.. There is small fluid collections wit h peripheral enhancement posterior to the pancreatic head and uncinate process. Irregular fluid colle ctions track along the inferior vena cava most inferiorly on series 901 image 184 and more superiorl y at series now on image 439. Spleen: Normal for size. Adrenal glands: Extensive fat stranding changes around the right adrenal gland. Kidneys: No evidence for obstructive uropathy. No suspicious renal masses. Stomach and Bowel: No evidence for bowel wall thickening or evidence for obstruction. Retroperitoneum/Peritoneum: There is extensive streaky edema throughout the abdomen most pronounced in the upper abdomen and centered around is a peripherally enhancing fluid collection tracks along th e inferior vena cava Vasculature: No aortic aneurysm. Musculoskeletal: The osseous structures appear intact. Lymph Nodes: No gross evidence for lymphadenopathy. Abdominal wall: Anasarca throughout the soft tissues. IMPRESSION: 1. Findings suggestive of pancreatitis with diffuse upper abdominal fat stranding changes and periph erally enhancing fluid collections which are layering along the inferior vena cava and posterior aspe ct of the pancreatic head. Pseudocyst formation with likely superimposed infection. Additional abnorm al morphology to the right adrenal gland thought to be sequela of active pancreatitis. No definitive evidence for retroperitoneal fibrosis. 2. Anasarca throughout the patient's subcutaneous tissues likely secondary to #1.
[2023-08-29] MEDS ORDERED: HYDROmorphone 0.5 MG/0.5 ML SYRINGE IVP PRN (19:17)
[2023-08-29] MEDS: HYDROmorphone 1 MG/ML 1 ML SYRINGE IVP PRN (19:58)
--- NOTE | 2023-08-29 20:56 | P.CN ---
Psychiatric Consult - . Consult date: 08/29/23 Consult:: 08/29/23 20:56 CONSULTATION Reason for consult; Evaluation of Pseudo seizures. Identifying Data: The patient is a years 34 years old, single BF, who lives in [place], [place] Reason for admission: The patient was sent to this hospital with abdominal pain, After initial work up. History of present illness: The patient noted that she had a seizure last night. According to the chart the patient was unresponsive and then recovered quickly. Her EEG was normal. The patient was seen by the Neurologist, who did not think that the patient had a seizure. He believes that patient has nonepileptic seizures The patient noted that she has had these episodes for past 4 years. Her last seizure was a year ago. She [facility]. After release from the skilled nursing, the patient discontinues Depakote. She has had these episodes of unresponsiveness since age 29. She believes that she has had latest 7 such episodes. She usually goes to ER after these episodes and gets discharged after getting a shot of Ativa. The patient has no h/o febrile convulsions or TBI. No h/o seizures in the family. The patient never diagnosed with pseud-seizures in the past. The patient indicated that she has no active psychiatric symptoms at present. She feels stable on her current medications. Current and past medications: Lexapro, Remeron Past Psychiatric History. The patient has been psychiatric treatment since age 15. She has been to out-pt treatment since then. She has attended out-pt off an on. Currently she is followed at [facility] in [place]. She has been hospitalized 5-6 times for depression. She has no h/o suicide. She used to cut herself. Her last admission was for Depression a year ago. Alcohol and Drug use History. The patient indicates using alcohol up to 1-2 pints a day. She uses Marijuana. Past medical history: Pancreatitis. h/o seizure disorder Family history of psychiatric disorder: her mother suffers from depression. MSE: The patient was alert and attentive. Orientation X3. Patient was pleasant and cooperative. Psychomotor activity was normal Speech was normal tone, quality, but underproductive. Her stated mood was fine. Affect was appropriate. 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 REC: The patient will need outpatient follow-up after discharge. Continue Current psychiatric treatment. Will sign off the case. Please reconsult if MS changes. Jef Jimenes MD Psychiatry
--- NOTE | 2023-08-30 00:04 | EEG ---
ELECTROENCEPHALOGRAM REPORT CLINICAL HISTORY: This is a 33-year-old woman with episode of unresponsiveness. The video EEG is obtained to evaluate for seizure epileptiform activity. RELEVANT MEDICATION: The patient is not on any antiepileptic drugs. EEG TYPE: A routine 21-channel EEG with video using the 10/20 electrode placement system. DESCRIPTION: Wakefulness is only obtained. During awake state, the posterior-dominant rhythm consists of [id number] voltage of 9 to 9.5 hertz activity that is well modulated, well sustained. There is no physiological stage 2 sleep architecture. There is no focal slowing. Interictal and ictal is none. ACTIVATION PROCEDURE: Photic stimulation did not evoke a posterior driving response. There is no abnormality during the photic stimulation. Hyperventilation is not performed. CLINICAL INTERPRETATION: This is a normal routine EEG. There is no focal slowing, epileptiform discharge, or seizure on the EEG. A normal routine EEG does not rule out underlying epilepsy. Clinical correlation is recommended. LEIF / TRACEY: [id number] / [id number]
[2023-08-30 10:40] LABS: Basophils # (A) 0.03 X 10*3/uL (0.00-0.10); Basophils % (A) 0.2 %; Eosinophils # (A) 0.14 X 10*3/uL (0.04-0.35); Eosinophils % (A) 0.9 %; HCT 31.7 % (37.2-46.3); HGB 10.3 g/dL (12.0-15.0); Lymphocytes # (A) 1.21 X 10*3/uL (0.90-5.00); Lymphocytes % (A) 7.4 %; MCH 29.1 pg (27.0-32.0); MCHC 32.5 g/dL (32.0-37.0); MCV 89.5 FL (80.0-97.0); Mean Platelet Volume 9.5 FL (9.5-12.2); Monocytes # (A) 1.61 X 10*3/uL (0.20-1.00); Monocytes % (A) 9.8 %; NRBC Per 100 WBC 0 X 10*3/uL (0.00-0.01); Neutrophils # (A) 13.38 X 10*3/uL (1.80-7.70); Neutrophils % (A) 81.2 %; Platelet Count 401 X 10*3/uL (140-440); RBC 3.54 X 10*6/uL (4.10-5.20); RDW 13.8 % (11.5-14.5); WBC 16.45 X 10*3/uL (4.50-10.00)
[2023-08-30 11:35] LABS: Magnesium 1.6 mg/dL (1.5-2.4)
[2023-08-30 11:55] LABS: ALT 7 U/L (8-44); AST 16 U/L (13-35); Albumin 3.1 g/dL (3.8-4.9); Albumin/Globulin Ratio 1.41 Ratio (1.60-3.17); Alkaline Phosphatase 68 U/L (41-126); BUN/Creat Ratio 13.75 Ratio (12.00-20.00); Blood Urea Nitrogen 5.5 mg/dL (9.0-27.0); Calcium 8.5 mg/dL (8.7-10.3); Carbon Dioxide 24.7 mmol/L (21.6-31.8); Chloride 102 mmol/L (96-109); Globulin 2.2 g/dL (1.6-3.3); Glucose 110 mg/dL (70-110); Potassium 3.4 mmol/L (3.5-5.5); Sodium 139 mmol/L (135-145); Total Bilirubin 0.9 mg/dL (0.3-1.2); Total Protein 5.3 g/dL (6.2-8.2)
--- NOTE | 2023-08-30 16:47 | P.PN ---
Subjective Progress Note Date: 08/30/23 33-year-old female with history of alcohol dependence, previous history of pancreatitis, bipolar disorder, generalized anxiety disorder, major depressive disorder, PTSD, nicotine dependence and cannabis use disorder presenting from [facility] with abdominal pain. In the ED, temperature was 97.7, pulse 65, respiratory rate 16, blood pressure 119/82, saturating at 99% on room air. Abdomen pelvis CT shows retroperitoneal fibrosis or soft tissue mass not otherwise specified in the retroperitoneum, likely idiopathic, however can be secondary to other causes such as malignancy, infection, retroperitoneal injury, or drugs, lymphoma can also sometimes be seen. WBC 12.1, creatinine 0.48, amylase 754, lipase 1700. Urinalysis negative for nitrites and leukocyte esterase. Beta-hCG negative. Patient started on IV fluids. Being admitted for acute pancreatitis. On the morning of 08/28/2023 patient had an episode of unresponsiveness. No seizure-like activity noted. Patient became quickly responsive and screaming in pain and try to induce vomiting. There was no postictal period noted. Neurology was notified. Attempted to get a CT head and stat EEG, patient refusing. Symptoms consistent with pseudoseizure. Psychiatry also consulted. CT head did not show any acute process. EEG showed no seizure-like activity. MRI abdomen pelvis showed findings suggesting pancreatitis with pseudocyst formation and superimposed infection. Case discussed with Dr. Quintana at [facility], accepted for transfer pending bed availability. 08/29 Patient was seen and examined. Continued abdominal pain with movement. No nausea or vomiting but not eating much. Awaiting bed at [facility]. CBC WBC 16.45 Hg 10.3. Hct 31.7. CMP K 3.4, AG 12.3, BUN 5.5, Ct 0.4, Ca 8.5, ALT 7, total protein 5.3, alb 3.1. C. diff negative. General: non toxic, no distress, appears at stated age Derm: warm, dry Head: atraumatic, normocephalic, symmetric Eyes: EOMI, no lid lag, anicteric sclera Mouth: no lip lesion, mucus membranes moist Cardiovascular: Good distal perfusion in all 4 extremities Lungs: Breathing comfortably, no accessory muscle use Ext: no gross muscle atrophy, no edema, no contractures Neuro: no focal neuro deficits Psych: Alert, oriented, appropriate affect Sepsis related to infected pseudocyst: Start Zosyn 3.375 g IV TID. LR at 150 cc/hr. Pain management with Dilaudid 1 mg IV Q3H PRN. Reglan 5 mg IV Q6H and Zofran 4 mg IV TID PRN N/V. Obtain BCx. Acute on chronic alcoholic pancreatitis: Pain management and IV hydration as above. CLD and advance. Alcohol dependence: Not in acute withdrawal. Nicotine dependence: Advised to quit. 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 EEG negative. History of bipolar disorder History of depression: Lexaprol 10 mg PO QD. Mirtazapine 7.5 mg PO QHS. CODE STATUS: FULL CODE DVT Prophylaxis: Lovenox GI Prophylaxis: Protonix Designated medical POA if patient is not able to make medical decisions for themselves: I have reviewed the following technical support consultant notes: I have reviewed the results of the following tests: CBC, CMP, C. diff. I have ordered the following tests: BCx. I have discussed the care of this patient with the following independent histo aaron: I have independently interpreted the following test below: I have discussed the management of this patient with the following physician: Objective - Vital Signs Vital signs: Vital Signs Temp 98.4 F 08/30/23 11:50 Pulse 85 08/30/23 11:50 Resp 16 08/30/23 11:50 BP 114/71 08/30/23 11:50 Pulse Ox 96 08/30/23 11:50 FiO2 Intake & Output 08/29/23 08/30/23 08/30/23 18:59 06:59 18:59 Intake Total 1500 Output Total 300 Balance 1200 Intake: Intake, IV Titration 1500 Amount Lactated Ringers 1,000 ml 1500 @ 150 mls/hr IV .[id number] [facility] Rx#:[id number] Output: Emesis 300 Other: Voiding Method Toilet Bedside Commode Bedside Commode # Voids 3 - Labs CBC & Chem 7: 08/30/23 06:43 08/30/23 06:43 Labs: Abnormal Lab Results - Last 24 Hours (Table) 08/30/23 08/30/23 Range/Units 06:43 06:43 WBC 16.45 H (4.50-10.00) X 10*3/uL RBC 3.54 L (4.10-5.20) X 10*6/uL Hgb 10.3 L (12.0-15.0) g/dL Hct 31.7 L (37.2-46.3) % Immature Gran # 0.08 H (0.00-0.04) X 10*3/uL Neutrophils # 13.38 H (1.80-7.70) X 10*3/uL Monocytes # 1.61 H (0.20-1.00) X 10*3/uL Potassium 3.4 L (3.5-5.5) mmol/L Anion Gap 12.30 H (4.00-12.00) mmol/L BUN 5.5 L (9.0-27.0) mg/dL Creatinine 0.4 L (0.6-1.5) mg/dL Calcium 8.5 L (8.7-10.3) mg/dL ALT 7 L (8-44) U/L Total Protein 5.3 L (6.2-8.2) g/dL Albumin 3.1 L (3.8-4.9) g/dL Albumin/Globulin Ratio 1.41 L (1.60-3.17) Ratio
[2023-08-30] MEDS: PIPERACILLIN-TAZOBACTAM 3.375 GM in SODIUM CHLORIDE 0.9% 100 ML IVPB SCH (17:52)
--- NOTE | 2023-08-31 01:43 | P.DS ---
Providers Date of admission: 08/27/23 15:22 Expected date of discharge: 08/31/23 Attending physician: Ivette Payne DO Consults: 08/28/23 11:26 Consult Physician Routine Consulting Provider: Paulo Boone Consult Reason/Comments: alcohol dependency, pseudoseizure Do you want consulting provider notified?: Yes 08/28/23 13:57 Consult Physician Routine Consulting Provider: Isai Chanel Consult Reason/Comments: pseudoseizure? Do you want consulting provider notified?: Already Contacted Primary care physician: Stated None Hospital Course: Patient is a 33-year-old female with a PMH of EtOH abuse, pancreatitis, bipolar disorder, PTSD, generalized anxiety disorder who was sent in from [place] for abdominal pain. CT abdomen and pelvis had revealed retroperitoneal soft tissue mass, not otherwise specified. Laboratory evaluation had revealed lipase of 1700 with WBC count 12.1. The patient was admitted for acute pancreatitis. While hospitalized, the patient had episodes of unresponsiveness with no seizure-like activity noted with the patient then quickly became responsive and screaming in pain, trying to induce vomiting with no postictal confusion noted. Neurology was consulted and the symptoms were believed to be secondary to pseudoseizure. Psychiatry was also consulted. MRI abdomen and pelvis was done to further elucidate CT abdomen and pelvis findings which revealed pancreatitis with pseudocyst with likely superimposed infection. The patient was subsequently presented to [facility] for gastroenterology evaluation in light of infected pseudocyst. The patient was started on IV antibiotics with Zosyn and continued IV fluids. The patient was accepted at [facility] by Dr. Quintana. Physical Examination General: Non-toxic, in no acute distress, appears stated age, normal weight HEENT: NC/AT, anicteric sclerae, moist conjunctiva, no lid-lag, PERRLA Cardiovascular: S1/S2 wnl, no murmurs, rubs, or gallops Lungs: Clear to auscultation, normal respiratory effort, no accessory muscle use Abdominal: Soft, epigastric tenderness noted, non-distended, no guarding, rebound, or rigidity Skin: Warm, dry Extremities: No edema or contractures Psychiatric: Alert and oriented to person, place and time, appropriate affect Neuro: CN II-XII grossly intact, Strength 5/5 in all 4 extremities, Speech intact, Sensation to light touch grossly intact throughout Discharge diagnosis: Acute pancreatitis with sepsis secondary to infected pseudocyst Alcohol abuse Bipolar disorder PTSD Pseudoseizures A total of 35 minutes of time were spent preparing this complex discharge summary. Patient Condition at Discharge: Fair Plan - Discharge Summary New Discharge Prescriptions: No Action Pantoprazole [Protonix] 40 mg PO DAILY Escitalopram [Lexapro] 10 mg PO DAILY Albuterol Sulfate [Albuterol Sulfate Hfa] 1 - 2 puff PO Q4-6H PRN PRN Reason: Shortness Of Breath Mirtazapine 7.5 mg PO HS Folic Acid 1 mg PO DAILY Celecoxib [CeleBREX] 100 mg PO DAILY Discharge Medication List Albuterol Sulfate [Albuterol Sulfate Hfa] 1 - 2 puff PO Q4-6H PRN 08/27/23 [History] Celecoxib [CeleBREX] 100 mg PO DAILY 08/27/23 [History] Escitalopram [Lexapro] 10 mg PO DAILY 08/27/23 [History] Folic Acid 1 mg PO DAILY 08/27/23 [History] Mirtazapine 7.5 mg PO HS 08/27/23 [History] Pantoprazole [Protonix] 40 mg PO DAILY 08/27/23 [History] Follow up Appointment(s)/Referral(s): None,Stated [Primary Care Provider] - 1-2 days Patient Instructions/Handouts: Pancreatitis (DC), Abuse of Alcohol (DC) Discharge/Stand Alone Forms: AA Meetings Dist & 24 - [facility], Outpatient Counseling, Inp Substance Abuse Facilities Discharge Disposition: OTHER INSTITUTION NOT DEFINED
[2023-08-31 01:54] VITALS: BP 98/67; PULSE 102; RESP 20; TEMP 99
== END 2023-08-31 02:16 | disposition short-term general hospital (02) | DRG 720 ==
LOC: EC 10:10 → 6NMEDSUR 15:21 → OBSVTOIN 15:22 → 1SOBS 15:47 → 5NMEDONC 08-28 09:53
PROVIDERS: ADMIT Internal Medicine; ATTEND Internal Medicine
DX: A41.9 Sepsis, unspecified organism (principal); K85.20 Alcohol induced acute pancreatitis without necrosis or infection; K68.2 Retroperitoneal fibrosis; F10.20 Alcohol dependence, uncomplicated; F31.30 Bipolar disorder, current episode depressed, mild or moderate severity, unspecified; B19.20 Unspecified viral hepatitis C without hepatic coma; F12.10 Cannabis abuse, uncomplicated; K86.3 Pseudocyst of pancreas; K86.0 Alcohol-induced chronic pancreatitis; F44.5 Conversion disorder with seizures or convulsions; Z28.310 Unvaccinated for COVID-19; F41.1 Generalized anxiety disorder; F43.10 Post-traumatic stress disorder, unspecified; K21.9 Gastro-esophageal reflux disease without esophagitis; F17.210 Nicotine dependence, cigarettes, uncomplicated; Z71.6 Tobacco abuse counseling; Z79.1 Long term (current) use of non-steroidal anti-inflammatories (NSAID); Z79.899 Other long term (current) drug therapy
CPT/HCPCS: 36415; 70450; 74177; 74183; 80053; 81001; 81025; 82150; 83605; 83690; 83735; 85025; 87040; 87324; 95816; 96361; 96374; 96375; 96376; 99285